=== PATIENT | female | born 1960 | race Caucasian/White ===

== ENCOUNTER 2017-11-23 05:55 | Emergency (ER) | payer BC ==
[2017-11-23 06:08] VITALS: BP 129/78
--- NOTE | 2017-11-23 06:27 | EDM.PDOC ---
ED HPI GENERAL MEDICAL PROBLEM - General Chief Complaint: Bite:Animal, Insect Stated Complaint: be sting Time Seen by Provider: 11/23/17 06:20 Source of Information: Reports: Patient History Limitations: Reports: No Limitations - History of Present Illness INITIAL COMMENTS - FREE TEXT/NARRATIVE: The patient presents with redness to the left lower leg. She got stung by a wasp on Monday. She went to the clinic and she has been treating it with some topical aloe vera cream. There is more redness now and she has no fever or chills. Onset: Sudden Duration: Day(s): Location: Reports: Lower Extremity, Left Improves with: Reports: None Worsens with: Reports: None Associated Symptoms: Reports: No Other Symptoms - Related Data Allergies Allergy/AdvReac Type Severity Reaction Status Date / Time Sulfa (Sulfonamide Allergy Rash Verified 11/23/17 06:08 Antibiotics) Home Meds: Home Meds Ascorbic Acid [Vitamin C] 1 tab PO DAILY 11/23/17 [History] Cholecalciferol (Vitamin D3) [Vitamin D] 1 tab PO DAILY 11/23/17 [History] Cyanocobalamin (Vitamin B-12) [Vitamin B-12] 1 tab PO DAILY 11/23/17 [History] Fish Oil/[place]-3 Fatty Acids [Fish Oil] 1 tab PO DAILY 11/23/17 [History] Multivitamin [Multivitamins] 1 tab PO DAILY 11/23/17 [History] cephALEXin [Keflex] 500 mg PO Q8H #30 cap 11/23/17 [Rx] Past Medical History - Past Surgical History HEENT Surgical History: Reports: Tonsillectomy Social & Family History - Family History Family Medical History: Noncontributory - Tobacco Use Smoking Status *Q: Never Smoker - Caffeine Use Caffeine Use: Reports: Coffee - Recreational Drug Use Recreational Drug Use: No ED ROS GENERAL - Review of Systems Review Of Systems: See Below Constitutional: Reports: No Symptoms HEENT: Reports: No Symptoms Respiratory: Reports: No Symptoms Cardiovascular: Reports: No Symptoms Endocrine: Reports: No Symptoms GI/Abdominal: Reports: No Symptoms : Reports: No Symptoms Musculoskeletal: Reports: Other (Redness to the left lower leg) ED EXAM, ANIMAL BITE - Physical Exam Exam: See Below Exam Limited By: No Limitations General Appearance: Alert, No Apparent Distress Ears: Normal External Exam Nose: Normal Inspection Head: Atraumatic, Normocephalic Neck: Normal Inspection Respiratory/Chest: No Respiratory Distress Extremities: Other (Erythema to the left lower leg around what appears to be a puncture wound) Course - Vital Signs Last Recorded V/S: Last Vital Signs Temp 97.8 F 11/23/17 06:05 Pulse 81 11/23/17 06:05 Resp 16 11/23/17 06:05 BP 129/78 11/23/17 06:05 Pulse Ox 96 11/23/17 06:05 - Re-Assessments/Exams Free Text/Narrative Re-Assessment/Exam: 11/23/17 06:24 I will get her on an antibiotic. Departure - Departure Time of Disposition: 06:25 Disposition: Home, Self-Care 01 Condition: Good Clinical Impression: Wasp sting Qualifiers: Encounter type: initial encounter Injury intent: undetermined intent Qualified Code(s): T63.464A - Toxic effect of venom of wasps, undetermined, initial encounter Cellulitis Qualifiers: Site of cellulitis: extremity Site of cellulitis of extremity: lower extremity Laterality: left Qualified Code(s): L03.116 - Cellulitis of left lower limb - Discharge Information *PRESCRIPTION DRUG MONITORING PROGRAM REVIEWED*: Not Applicable *COPY OF PRESCRIPTION DRUG MONITORING REPORT IN PATIENT [facility]ONATAN: Not Applicable Prescriptions: cephALEXin [Keflex] 500 mg PO Q8H #30 cap Referrals: Poli Watson MD [Primary Care Provider] - Additional Instructions: Take the keflex 3 times per day for 10 days. Put warm compresses on the wound 3 times per day for 3 days. Please return if you are worse.
== END 2017-11-23 06:34 | disposition home or self-care (01) ==
LOC: JD.ED 05:55
DX: T63.464A Toxic effect of venom of wasps, undetermined, initial encounter (principal); L03.116 Cellulitis of left lower limb; Z88.2 Allergy status to sulfonamides; Z79.899 Other long term (current) drug therapy
CPT/HCPCS: 99281